=== PATIENT | female | born 2000 | race Caucasian/White ===

== ENCOUNTER 2021-01-07 20:11 | Emergency (ER) | payer BC ==
[~2021-01-07] VITALS: Ht 154.9 cm; Wt 56.7 kg
[2021-01-07 20:19] VITALS: BP_SYST 131
[2021-01-07] MEDS ORDERED: ACETAMINOPHEN 500 MG TABLET PO ONE (20:30)
[2021-01-07] MEDS ORDERED: BACITRACIN 1 GM OINT TP ONE ×2 (21:00→21:38)
[2021-01-07] MEDS ORDERED: LIDOCAINE 1%, 20 ML MDV 20 ML ONE (21:07)
[2021-01-07] MEDS ORDERED: IBUP-1969 PO (21:14)
[2021-01-07] MEDS ORDERED: AMOX-426 PO (21:40)
[2021-01-08 00:34] VITALS: BP_SYST 131
== END 2021-01-07 22:00 | disposition home or self-care (01) ==
LOC: SED 20:11
DX: S01.551A Open bite of lip, initial encounter (principal); W54.0XXA Bitten by dog, initial encounter; Y93.89 Activity, other specified; Y92.89 Other specified places as the place of occurrence of the external cause; Y99.8 Other external cause status
CPT/HCPCS: 12011; 99282; J2001

== ENCOUNTER 2022-01-12 09:56 | Emergency (ER) | payer BC, SELFPAY ==
[~2022-01-12] VITALS: Ht 157.5 cm; Wt 56.7 kg
[~2022-01-12 09:56] MED LIST: AMOX-426 PO; IBUP-1969 PO
[2022-01-12 10:15] VITALS: BP_SYST 131
[2022-01-12] MEDS ORDERED: ETOMIDATE 20 MG/ 10 ML VIAL (AMIDATE) ONE (10:35)
[2022-01-12] MEDS ORDERED: KETAMINE HCL 500 MG/10 ML VIAL ONE (10:36)
[2022-01-12] MEDS ORDERED: ETOMIDATE 20 MG/ 10 ML VIAL (AMIDATE) IVP ONE (10:45)
[2022-01-12] MEDS ORDERED: BACITRACIN 1 GM OINT TP ONE (11:10)
[2022-01-12] MEDS ORDERED: HYDR-3917 PO (11:13)
[2022-01-12] MEDS ORDERED: ED NON STOCK ORDER 1 EA MISC IV ONE (11:45)
[2022-01-12 12:00] VITALS: BP_SYST 120
== END 2022-01-12 12:08 | disposition home or self-care (01) ==
LOC: SED 09:56
DX: N75.0 Cyst of Bartholin's gland (principal); Z79.899 Other long term (current) drug therapy
CPT/HCPCS: 56420; 99285; J3490

== ENCOUNTER 2023-05-01 21:01 | Emergency (ER) | payer BC ==
[~2023-05-01] VITALS: Ht 157.5 cm; Wt 56.7 kg
[~2023-05-01 21:01] MED LIST changes: +HYDR-3917 PO
[2023-05-01 21:05] VITALS: BP_SYST 144
--- NOTE | 2023-05-01 21:08 | NUR ---
Patient to ER bed 7 to gown for evaluation. Side rails up. Report given to LORI PROCTOR(PASQUALE).
[2023-05-01] MEDS ORDERED: MORPHINE 4 MG INJ. 4 MG/ML VIAL IVP ONE (21:15)
--- NOTE | 2023-05-01 21:15 | NUR ---
ER at bedside examining patient.
[2023-05-01] MEDS ORDERED: BUPIVACAINE /PF 0.25% 30 ML VIAL INJ ONE (21:30)
[2023-05-01] MEDS ORDERED: KETAMINE HCL IN 0.9 % NACL 50 MG/5 ML SYRINGE IVP ONE (21:30)
--- NOTE | 2023-05-01 21:31 | NUR ---
PATIENT HAS GOLF BALL SIZE SWELLING OF RIGHT LABIA, COMPLAINTS OF 10/10 PAIN, [address] IN RIGHT AC
[2023-05-01] MEDS ORDERED: KETAMINE HCL 500 MG/10 ML VIAL IVP ONE (21:45)
--- NOTE | 2023-05-01 22:39 | NUR ---
S NASALINCISION AND DRAINAGE OF BARTHOLIN'S CYST ON RIGHT LABIA ORDERED AND PERFORMED BY ER , CONSENT SIGNED AND IN CHART TIME OUT 2206 CHI FOX RN RT PATIENT PLACED ON 2 LITERS NASAL CANNULA 112/60, 98% 2 LITERS NASAL CANNULA, 80 HR, 23 RESPIRATIONS 2210) 133/82, 99% 2 LITERS NASAL, 132 HR AREA PREP WITH BETADOINE 2212) 151/76, 99% 2 LITERS, 132 HR 2214) NERVE BLOCK DONE BY MD MARIN RING PLACED BY 2226) PROCEDURE COMPLETE Addendum: 05/01/23 at 2323 by [email or web address] KETAMINE 100MCG GIVEN AT 2208 BY
[2023-05-01] MEDS ORDERED: ONDANSETRON HCL 4 MG/2 ML VIAL IVP ONE (23:00)
--- NOTE | 2023-05-01 23:25 | NUR ---
PATIENT IS ALERT AND ORIENTED AT THIS TIME, ZOFRAN GIVEN FOR NAUSEA
--- NOTE | 2023-05-01 23:29 | NUR ---
PATIENT TOLERATING SMALL SIPS OF WATER AT THIS TIME
[2023-05-01] MEDS ORDERED: SULF1TAB48 PO (23:44)
[2023-05-01] MEDS ORDERED: OXYC-128 PO (23:45)
[2023-05-01] MEDS ORDERED: IBUP-1969 PO (23:45)
[2023-05-02] MEDS ORDERED: ONDANSETRON HCL 4 MG/2 ML VIAL IVP ONE (00:30)
--- NOTE | 2023-05-02 01:35 | NUR ---
Patient given written and verbal discharge instructions and verbalizes understanding. ER MD discussed with patient the results and treatment provided. Patient in stable condition. ID arm band removed. IV catheter removed intact and dressing applied, no active bleeding. Rx of given. Patient educated on pain management and to follow up with PMD. Pain Scale 2/10. INSTRUCTED TO FOLLOW UP WITH OB FOR REMOVAL OF TOMAS LOOP. Opportunity for questions provided and answered. Medication side effect fact sheet provided.
[2023-05-02 01:41] VITALS: BP_SYST 120
== END 2023-05-02 01:41 | disposition home or self-care (01) ==
LOC: SED 21:01
DX: N75.1 Abscess of Bartholin's gland (principal); Z79.899 Other long term (current) drug therapy
CPT/HCPCS: 99285; 96374; 56420; 96375; 99152; 96376; J3490; J2405 ×2; J2270

== ENCOUNTER 2023-09-06 09:35 | Emergency (ER) | payer BC ==
[~2023-09-06] VITALS: Ht 162.6 cm; Wt 56.7 kg
[~2023-09-06 09:35] MED LIST changes: +OXYC-128 PO; +SULF1TAB48 PO
[2023-09-06 09:58] VITALS: BP_SYST 130; PULSE 94; RESP 18; TEMP 97.7; O2SAT 99
[2023-09-06] MEDS ORDERED: HYDROcodone/ACETAMIN 5-325 MG TAB (NORCO/ VICODIN) PO ONE (10:00)
[2023-09-06] MEDS ORDERED: HYDROmorphone 1 MG/ML INJ. CARTRIDGE IVP ONE (10:30)
[2023-09-06 10:34] LABS: BASOPHILS # (AUTO) 0.1 K/uL (0.0-0.2); BASOPHILS % (AUTO) 0.5 % (0.0-2.0); EOSINOPHILS # (AUTO) 0.2 K/uL (0.0-0.4); EOSINOPHILS % (AUTO) 1.3 % (0.0-4.0); HEMATOCRIT 37.3 % (36-48); HEMOGLOBIN 12.7 g/dL (12.0-16.0); LYMPHOCYTES # (AUTO) 1.7 K/uL (1.0-5.5); LYMPHOCYTES % (AUTO) 9.5 % (20.5-51.5); MEAN CORPUSCULAR HEMOGLOBIN 31 pg (27-31); MEAN CORPUSCULAR HGB CONC 34 % (32-36); MEAN CORPUSCULAR VOLUME 90 fL (79.0-98.0); MONOCYTES # (AUTO) 1.1 K/uL (0.0-1.0); MONOCYTES % (AUTO) 6.3 % (1.7-9.3); NEUTROPHILS # (AUTO) 14.4 K/uL (1.8-7.7); NEUTROPHILS % (AUTO) 82.4 % (40.0-70.0); PLATELET COUNT (AUTO) 320 K/uL (130-430); RED BLOOD CELL COUNT(AUTO) 4.16 MIL/uL (4.2-6.2); RED CELL DISTRIBUTION WIDTH 13.7 % (9.0-15.0); WHITE BLOOD COUNT (AUTO) 17.5 K/uL (4.8-10.8)
[2023-09-06] MEDS ORDERED: ONDANSETRON HCL 4 MG/2 ML VIAL IVP ONE ×2 (10:45→13:45)
[2023-09-06 10:51] LABS: CALCIUM 8.3 mg/dL (8.4-11.0); CREATININE 0.75 mg/dL (0.55-1.30); POTASSIUM 3.4 mmol/L (3.5-5.1)
[2023-09-06 10:56] LABS: ALBUMIN 3.9 g/dL (3.4-4.8); TOTAL BILIRUBIN 0.7 mg/dL (0.0-1.0); TOTAL PROTEIN, SERUM 7.6 g/dL (6.4-8.3)
[2023-09-06] MEDS ORDERED: KETAMINE HCL 500 MG/10 ML VIAL IV ONE (11:30)
[2023-09-06] MEDS ORDERED: KETAMINE HCL IN 0.9 % NACL 50 MG/5 ML SYRINGE IV ONE (12:15)
[2023-09-06] MEDS ORDERED: MORPHINE 4 MG INJ. 4 MG/ML VIAL IVP ONE (13:45)
[2023-09-06] MEDS ORDERED: DOXY100C5 PO (13:57)
[2023-09-06] MEDS ORDERED: HYDR-3917 PO (13:57)
[2023-09-06 15:56] VITALS: BP_SYST 128; PULSE 66; RESP 15; TEMP 97.7; O2SAT 98
== END 2023-09-06 15:56 | disposition home or self-care (01) ==
LOC: SED 09:35
DX: N75.0 Cyst of Bartholin's gland (principal); Z79.899 Other long term (current) drug therapy
CPT/HCPCS: 99285; 96374; 56420; 96375; 80053; 85025; 36415; 96376; 99152; J2405; J1170; J2270

== ENCOUNTER 2023-09-09 21:14 | Emergency (ER) | payer BC ==
[~2023-09-09] VITALS: Ht 157.5 cm; Wt 56.7 kg
[~2023-09-09 21:14] MED LIST changes: +DOXY100C5 PO
[2023-09-09 21:26] VITALS: BP_SYST 122; PULSE 122; RESP 16; TEMP 96.9; O2SAT 99
[2023-09-09] MEDS ORDERED: HYDROcodone/ACETAMIN 7.5-325 MG TAB PO ONE (22:45)
[2023-09-09] MEDS ORDERED: [UNRECOGNIZED DRUG - OTHER] INJ ONE (22:45)
[2023-09-09] MEDS ORDERED: LIDOCAINE/EPI 2% 1:100000 20 ML VIAL INJ ONE (22:58)
[2023-09-09] MEDS ORDERED: KETAMINE HCL IN 0.9 % NACL 50 MG/5 ML SYRINGE IVP ONE (23:30)
[2023-09-10] MEDS ORDERED: ONDANSETRON HCL 4 MG/2 ML VIAL ONE
[2023-09-10] MEDS ORDERED: LIDOCAINE/EPI 2% 1:100000 20 ML VIAL INJ ONE
[2023-09-10] MEDS ORDERED: NACL 0.9% 1,000 ML IV ONE (00:30)
[2023-09-10] MEDS ORDERED: KETOROLAC TROMETHAMINE 30 MG VIAL ONE (00:33)
[2023-09-10] MEDS ORDERED: KETOROLAC TROMETHAMINE 30 MG VIAL IVP ONE (00:45)
[2023-09-10] MEDS ORDERED: ONDANSETRON HCL 4 MG/2 ML VIAL IVP ONE ×2 (01:45)
[2023-09-10] MEDS ORDERED: ONDA-8 TL (02:02)
[2023-09-10 02:20] VITALS: BP_SYST 114; PULSE 84; RESP 20; TEMP 98.1; O2SAT 97
== END 2023-09-10 02:15 | disposition home or self-care (01) ==
LOC: SED 21:14
DX: S30.23XA Contusion of vagina and vulva, initial encounter (principal); N75.0 Cyst of Bartholin's gland; Z79.899 Other long term (current) drug therapy; X58.XXXA Exposure to other specified factors, initial encounter; Y93.89 Activity, other specified; Y92.89 Other specified places as the place of occurrence of the external cause; Y99.8 Other external cause status
CPT/HCPCS: 99285; 56420; 99152; 96374; 96361; J1885; J2405; J7030